=== PATIENT | male | born 1990 | race Caucasian/White ===

== ENCOUNTER 2017-03-01 07:08 | Emergency (ER) | payer OTHER ==
[~2017-03-01] VITALS: Ht 172.7 cm; Wt 120.0 kg
[~2017-03-01 07:08] MED LIST: IBUP-238 PO; PROM25SU8 PO
[2017-03-01 07:10] VITALS: BP 175/99; PULSE 90; RESP 14; TEMP 97.7; O2SAT 98
--- NOTE | 2017-03-01 07:27 | PD ---
HPI Chief Complaint: Cold / Flu Symptoms Time Seen by Provider: 07:18 Travel History International Travel<30 days: No Contact w/Intl Traveler<30days: No Traveled to known affect area: No History of Present Illness HPI 26-year-old male presents the emergency department with 2-3 weeks of upper respiratory congestion, headache, sore throat, congestion, and postnasal drip. Patient states a hacking cough which is worse when he lays down first thing in the morning. He denies chest pain or shortness of breath. He denies nausea but does have fairly frequent heartburn. Denies abdominal pain or diarrhea. No significant fever. He has no known drug allergies. PFSH Past Medical History Diminished Hearing: No Past Surgical History Abdominal Surgery: Yes (fletcher HERNIA REPAIR) Social History Alcohol Use: Yes (occasional beer) Tobacco Use: No (dip) Substance Use: No (MARIJUANA 2 WEEKS AGO. denies 12-01-13) Allergies-Medications (Allergen,Severity, Reaction): Coded Allergies: No Known Allergies (Verified , 03/01/17) Reported Meds & Prescriptions Reported Meds & Active Scripts Active No Active Prescriptions or Reported Medications Review of Systems Except as stated in HPI: all other systems reviewed are Neg General / Constitutional: No: Fever, Chills Eyes: No: Visual changes HENT: Positive: Headaches, Sore Throat, Rhinitis, Rhinorrhea, Congestion, No: Vertigo, Lightheadedness, Nosebleed, Neck Stiffness, Neck Pain, Masses, Gingival Bleeding, Dental Difficulties, Ear Discharge, Earache Cardiovascular: No: Chest Pain or Discomfort Respiratory: Positive: Cough, No: Shortness of Breath, Wheezing Gastrointestinal: Positive: Dysphagia (fairly regular heartburn.), No: Nausea, Vomiting, Diarrhea, Abdominal Pain Genitourinary: No: Dysuria Musculoskeletal: No: Pain Skin: No Rash Neurologic: No: Weakness Psychiatric: No: Depression Endocrine: No: Polydipsia Hematologic/Lymphatic: No: Easy Bruising Physical Exam Narrative GENERAL: Patient appears in no acute distress. SKIN: Warm and dry. Normal color. Normal turgor. HEAD: Atraumatic. Normocephalic. EYES: Pupils equal and round. No scleral icterus. No injection or drainage. ENT: No nasal bleeding or discharge. Mucous membranes pink and moist. Patient is mild to moderate sinus tenderness bilaterally. Posterior pharynx is somewhat raw with cobblestoning and noted postnasal drip. TMs are dull bilaterally with some injection in the left. NECK: Trachea midline. Supple and nontender. No significant lymphadenopathy. CARDIOVASCULAR: Regular rate and rhythm. RESPIRATORY: No accessory muscle use. Clear to auscultation. Breath sounds equal bilaterally. MUSCULOSKELETAL: Extremities without clubbing, cyanosis, or edema. No obvious deformities. NEUROLOGICAL: Awake and alert. No obvious cranial nerve deficits. Motor grossly within normal limits. Five out of 5 muscle strength in the arms and legs. Normal speech. PSYCHIATRIC: Appropriate mood and affect; insight and judgment normal. Data Data Last Documented VS Vital Signs Date Time Temp Pulse Resp B/P (MAP) Pulse Ox O2 Delivery O2 Flow Rate FiO2 03/01/17 07:10 97.7 90 14 175/99 (124) 98 MDM Medical Decision Making Medical Screen Exam Complete: Yes Emergency Medical Condition: Yes Differential Diagnosis Upper respiratory infection. Allergic rhinitis. Sinusitis. Reflux. Narrative Course Patient is treated with amoxicillin 875 twice a day 10 days. Patient is given Flonase nasal spray 2 sprays each nostril daily. Patient is given omeprazole 20 mg daily. #30. Patient follow-up with local primary care physician as needed or return to the ED as needed. Diagnosis Primary Impression: Acute maxillary sinusitis, unspecified Qualified Codes: J01.00 - Acute maxillary sinusitis, unspecified Additional Impression: GERD without esophagitis Referrals: [facility] Patient Instructions: Gastroesophageal Reflux Disease (DC), General Instructions, Sinusitis (ED) Additional Instructions: Patient is treated with amoxicillin 875 twice a day 10 days. Patient is given Flonase nasal spray 2 sprays each nostril daily. Patient is given omeprazole 20 mg daily. #30. Patient follow-up with local primary care physician as needed or return to the ED as needed. Med/Other Pt SpecificInfo: Prescription(s) given Scripts No Active Prescriptions or Reported Meds Disposition: 01 DISCHARGE HOME Condition: Stable Melo Lopez Mar 01, 2017 07:27
[2017-03-01] MEDS ORDERED: OMEP20TA PO (07:28)
[2017-03-01] MEDS ORDERED: AMOX875T PO (07:28)
[2017-03-01] MEDS ORDERED: FLUT1SPR5 EACH NARE (07:28)
== END 2017-03-01 07:40 | disposition home or self-care (01) ==
LOC: NEPK 07:08
DX: J01.00 Acute maxillary sinusitis, unspecified (principal); K21.9 Gastro-esophageal reflux disease without esophagitis
CPT/HCPCS: 99283